=== PATIENT | female | born 1985 | race Caucasian/White ===

== ENCOUNTER 2018-05-31 17:37 | Emergency (ER) | payer SELFPAY ==
[~2018-05-31] VITALS: Ht 160 cm; Wt 63.6 kg
[~2018-05-31 17:37] MED LIST: CIPROFLOXACN500 MG PO; NO HOME MEDS; PYRIDIUM200 MG PO
[2018-05-31 18:16] LABS: HEMOGLOBIN 11.8 g/dl (12.0-16.0); IMMATURE GRANULOCYTES 0.6 % (0.0-5.0); MEAN CELL VOLUME 87.4 fL CALC (80.0-100.0); MEAN CORPUSCULAR HGB 29.1 pG CALC (26.0-32.0); MEAN CORPUSCULAR HGB CONC 33.2 g/L CALC (32.0-36.0); NEUT# 6.21 thou/uL (2.00-7.15); RED BLOOD COUNT 4.06 mill/uL (4.20-5.60); RED CELL DISTRI WIDTH 13.9 % (11.5-15.5)
[2018-05-31 18:27] LABS: HEMATOCRIT 35.5 % (37.0-47.0)
[2018-05-31 18:32] LABS: ALBUMIN 4.1 g/dL (3.2-5.0); ANION GAP 14 (6-22 (CALC)); BILIRUBIN, TOTAL 0.4 mg/dL (0.0-1.4); BUN 18 mg/dL (7-17); BUN/CREATININE RATIO 18 (12-20 (CALC)); CARBON DIOXIDE 29 mmol/l (22-30); CHLORIDE 107 mmol/l (95-108); GFR > 60 ML/MIN (>=60 (CALC)); GFR FOR AFR.AMER. > 60 ML/MIN (>=60 (CALC)); POTASSIUM 3.3 mmol/l (3.5-5.1); SODIUM 146 mmol/l (137-146); TOTAL PROTEIN 6.9 g/dL (6.3-8.2)
[2018-05-31 18:37] LABS: ALKALINE PHOSPHATASE 46 u/l (38-126); SGOT/AST 48 u/l (14-36)
[2018-05-31 18:44] LABS: URINE BILIRUBIN - DIPSTICK NEGATIVE (NEGATIVE); URINE BLOOD DIPSTICK NEGATIVE (NEGATIVE); URINE COLOR YELLOW; URINE GLUCOSE - DIPSTICK NEGATIVE (NEGATIVE); URINE KETONE TRACE mg/dL (NEGATIVE); URINE LEUK ESTERASE NEGATIVE (NEGATIVE); URINE PROTEIN - DIPSTICK 30 mg/dL (NEG-TRACE); URINE SPECIFIC GRAVITY >=1.030
[2018-05-31 18:57] LABS: URINE CLARITY TURBID; URINE NITRITE - DIPSTICK POSITIVE (Negative)
[2018-05-31 19:02] LABS: URINE BACTERIA MANY hpf; URINE SQUAMOUS EPITHELIAL CELL FEW EPI/hpf (0-FEW)
[2018-05-31 19:03] LABS: COCAINE NEGATIVE (NEGATIVE); TETRAHYDROCANNABIONOL NEGATIVE (NEGATIVE)
[2018-05-31 19:04] LABS: BARBITURATES NEGATIVE (NEGATIVE); METHADONE NEGATIVE (NEGATIVE); OXCYCODONE NEGATIVE (NEGATIVE); TRICYLIC ANTIDEPRESSANTS NEGATIVE (NEGATIVE)
[2018-05-31] MEDS ORDERED: CIPROFLOXACN500 MG PO (19:13)
[2018-05-31 20:30] VITALS: BP 178/73
== END 2018-05-31 20:26 | disposition designated cancer center or children's hospital (05) | DRG 897 ==
LOC: ED 17:37
PROVIDERS: Emergency Medicine
DX: F15.10 Other stimulant abuse, uncomplicated (principal); R45.851 Suicidal ideations; N39.0 Urinary tract infection, site not specified; B96.20 Unspecified Escherichia coli [E. coli] as the cause of diseases classified elsewhere

== ENCOUNTER 2021-09-29 10:50 | Emergency (ER) | payer SELFPAY ==
[~2021-09-29] VITALS: Ht 160 cm; Wt 77.2 kg
[2021-09-29 12:31] LABS: ALBUMIN 4.4 g/dL (3.2-5.0); ALKALINE PHOSPHATASE 73 u/l (38-126); ANION GAP 13 (6-22 (CALC)); BUN 13 mg/dL (7-17); BUN/CREATININE RATIO 20 (12-20 (CALC)); CARBON DIOXIDE 26 mmol/l (22-30); CHLORIDE 104 mmol/l (95-108); CREATININE 0.7 mg/dL (0.5-1.0); ETHYL ALCOHOL 0 mg/dl (0-30); GFR > 60 ML/MIN (>=60 (CALC)); GFR FOR AFR.AMER. > 60 ML/MIN (>=60 (CALC)); HEMOGLOBIN 13.4 g/dl (12.0-16.0); IMMATURE GRANULOCYTES 0.6 % (0.0-5.0); LIPASE 70 u/l (23-300); MEAN CELL VOLUME 89.2 fL CALC (80.0-100.0); MEAN CORPUSCULAR HGB 28.4 pG CALC (26.0-32.0); MEAN CORPUSCULAR HGB CONC 31.8 g/dL CAL (32.0-36.0); NEUT# 5.65 thou/uL (2.00-7.15); POTASSIUM 4.2 mmol/l (3.5-5.1); RED BLOOD COUNT 4.72 mill/uL (4.20-5.60); RED CELL DISTRI WIDTH 13.2 % (11.5-15.5); SGOT/AST 25 u/l (14-36); SODIUM 138 mmol/l (137-146)
[2021-09-29 12:33] LABS: BILIRUBIN, TOTAL 0.6 mg/dL (0.0-1.4); HEMATOCRIT 42.1 % (37.0-47.0); TOTAL PROTEIN 8.3 g/dL (6.3-8.2)
[2021-09-29] MEDS ORDERED: ULTRAM50 MG PO (14:06)
[2021-09-29] MEDS ORDERED: ZOFRAN4 MG/TAB PO (14:06)
[2021-09-29 14:17] VITALS: BP 136/82
== END 2021-09-29 14:29 | disposition home or self-care (01) | DRG 103 ==
LOC: ED 10:50
DX: G43.909 Migraine, unspecified, not intractable, without status migrainosus (principal); I10 Essential (primary) hypertension; T46.5X6A Underdosing of other antihypertensive drugs, initial encounter; Z91.128 Patient's intentional underdosing of medication regimen for other reason; Z20.822 Contact with and (suspected) exposure to COVID-19

== ENCOUNTER 2022-01-28 16:09 | Emergency (ER) | payer SELFPAY ==
[~2022-01-28] VITALS: Ht 160 cm; Wt 60.0 kg
[~2022-01-28 16:09] MED LIST changes: +ULTRAM50 MG PO; +ZOFRAN4 MG/TAB PO
[2022-01-28 17:34] VITALS: BP 182/96
[2022-01-28] MEDS ORDERED: PREDNISONE20 MG PO (17:59)
[2022-01-28] MEDS ORDERED: PEPCID20 MG PO (17:59)
[2022-01-28] MEDS ORDERED: BENADRYL25 M1 PO (17:59)
[2022-01-28 18:01] VITALS: BP 151/84
[2022-01-28 18:31] VITALS: BP 155/83
[2022-01-28 19:00] VITALS: BP 142/79
[2022-01-28 19:23] VITALS: BP 181/97
== END 2022-01-28 19:14 | disposition home or self-care (01) | DRG 607 ==
LOC: ED 16:09
DX: L23.9 Allergic contact dermatitis, unspecified cause (principal); I10 Essential (primary) hypertension; X58.XXXA Exposure to other specified factors, initial encounter

== ENCOUNTER 2022-09-29 13:09 | Emergency (ER) | payer SELFPAY ==
[~2022-09-29] VITALS: Ht 160 cm; Wt 63.0 kg
[~2022-09-29 13:09] MED LIST changes: +BENADRYL25 M1 PO; +PEPCID20 MG PO; +PREDNISONE20 MG PO
[2022-09-29 14:20] LABS: BASO% 0.1 % (0-3); EOS% 0.4 % (0-8); HEMATOCRIT 40.7 % (37.0-47.0); HEMOGLOBIN 13.3 g/dl (12.0-16.0); IMMATURE GRANULOCYTES 0.4 % (0.0-5.0); LYMPH% 2.7 % (15-41); MEAN CELL VOLUME 87.5 fL CALC (80.0-100.0); MEAN CORPUSCULAR HGB 28.6 pG CALC (26.0-32.0); MEAN CORPUSCULAR HGB CONC 32.7 g/dL CAL (32.0-36.0); MONO% 3.8 % (2-13); NEUT# 22.67 thou/uL (2.00-7.15); NEUT% 92.6 % (42-76); RED BLOOD COUNT 4.65 mill/uL (4.20-5.60); RED CELL DISTRI WIDTH 13.7 % (11.5-15.5)
[2022-09-29 14:25] LABS: HCG SERUM/URINE (NEG/POS) NEGATIVE (NEGATIVE)
[2022-09-29 14:29] LABS: ALBUMIN 4.3 g/dL (3.2-5.0); ALKALINE PHOSPHATASE 80 u/l (38-126); ANION GAP 10 (6-22 (CALC)); BILIRUBIN, TOTAL 0.4 mg/dL (0.02-1.3); BUN 13 mg/dL (7-17); BUN/CREATININE RATIO 19 (12-20 (CALC)); CARBON DIOXIDE 25 mmol/l (22-30); CHLORIDE 102 mmol/l (95-108); CREATININE 0.7 mg/dL (0.5-1.0); GFR FOR AFR.AMER. > 60 ML/MIN (>=60 (CALC)); GFR OTHER RACES > 60 ML/MIN (>=60 (CALC)); SGOT/AST 24 u/l (14-36); SODIUM 133 mmol/l (137-146); TOTAL PROTEIN 7.8 g/dL (6.3-8.2)
[2022-09-29 14:57] VITALS: BP 133/94
== END 2022-09-29 15:07 | disposition home or self-care (01) | DRG 103 ==
LOC: ED 13:09
PROVIDERS: Family Medicine
DX: G44.009 Cluster headache syndrome, unspecified, not intractable (principal)

== ENCOUNTER 2022-10-24 22:27 | Emergency (ER) | payer SELFPAY ==
[~2022-10-24] VITALS: Ht 160 cm; Wt 86.3 kg
[2022-10-24 22:45] VITALS: BP 158/89
[2022-10-24 23:09] VITALS: BP 149/83
[2022-10-24 23:15] VITALS: BP 152/107
[2022-10-24 23:40] VITALS: BP 158/99
[2022-10-24 23:43] LABS: BASO% 0.1 % (0-3); HEMATOCRIT 44.6 % (37.0-47.0); HEMOGLOBIN 14.5 g/dl (12.0-16.0); IMMATURE GRANULOCYTES 0.5 % (0.0-5.0); LYMPH% 2.2 % (15-41); MEAN CELL VOLUME 85.8 fL CALC (80.0-100.0); MEAN CORPUSCULAR HGB 27.9 pG CALC (26.0-32.0); MEAN CORPUSCULAR HGB CONC 32.5 g/dL CAL (32.0-36.0); MONO% 6.4 % (2-13); NEUT# 26.27 thou/uL (2.00-7.15); NEUT% 90.8 % (42-76); RED BLOOD COUNT 5.2 mill/uL (4.20-5.60); RED CELL DISTRI WIDTH 13.7 % (11.5-15.5)
[2022-10-24 23:45] VITALS: BP 160/98
[2022-10-24 23:57] LABS: POTASSIUM 4.3 mmol/l (3.5-5.1)
[2022-10-24 23:58] LABS: ALBUMIN 5.7 g/dL (3.2-5.0); BILIRUBIN, TOTAL 0.6 mg/dL (0.02-1.3); CREATININE 3.6 mg/dL (0.5-1.0); TOTAL PROTEIN 10.3 g/dL (6.3-8.2)
[2022-10-25 02:33] VITALS: BP 164/92
== END 2022-10-25 02:35 | disposition left against medical advice (07) | DRG 894 ==
LOC: ED 22:27
PROVIDERS: Emergency Medicine
DX: F15.10 Other stimulant abuse, uncomplicated (principal); A41.9 Sepsis, unspecified organism; E86.0 Dehydration; V19.9XXA Pedal cyclist (driver) (passenger) injured in unspecified traffic accident, initial encounter; R22.9 Localized swelling, mass and lump, unspecified; Z53.29 Procedure and treatment not carried out because of patient's decision for other reasons

== ENCOUNTER 2023-04-24 13:11 | Emergency (ER) | payer SELFPAY ==
[~2023-04-24] VITALS: Ht 160 cm; Wt 73.9 kg
[2023-04-24 13:34] VITALS: BP 165/94
[2023-04-24 13:52] LABS: BASO% 0.2 % (0-3); EOS% 1.2 % (0-8); HEMATOCRIT 41.7 % (37.0-47.0); HEMOGLOBIN 13.9 g/dl (12.0-16.0); IMMATURE GRANULOCYTES 0.4 % (0.0-5.0); LYMPH% 25.2 % (15-41); MEAN CORPUSCULAR HGB 28.7 pG CALC (26.0-32.0); MEAN CORPUSCULAR HGB CONC 33.3 g/dL CAL (32.0-36.0); NEUT# 5.41 thou/uL (2.00-7.15); RED BLOOD COUNT 4.85 mill/uL (4.20-5.60); RED CELL DISTRI WIDTH 13.4 % (11.5-15.5)
[2023-04-24 14:00] VITALS: BP 173/91
[2023-04-24 14:05] LABS: HCG SERUM/URINE (NEG/POS) NEGATIVE (NEGATIVE)
[2023-04-24 14:08] LABS: ALKALINE PHOSPHATASE 63 u/l (38-126); ANION GAP 15 (6-22 (CALC)); BILIRUBIN, TOTAL 0.7 mg/dL (0.02-1.3); CARBON DIOXIDE 22 mmol/l (22-30); CHLORIDE 104 mmol/l (95-108); POTASSIUM 3.7 mmol/l (3.5-5.1); SODIUM 137 mmol/l (137-146)
[2023-04-24 14:09] LABS: ALBUMIN 4.3 g/dL (3.2-5.0); BUN 15 mg/dL (7-17); BUN/CREATININE RATIO 19 (12-20 (CALC)); CREATININE 0.8 mg/dL (0.5-1.0); GFR FOR AFR.AMER. > 60 ML/MIN (>=60 (CALC)); GFR OTHER RACES > 60 ML/MIN (>=60 (CALC)); SGOT/AST 28 u/l (14-36); TOTAL PROTEIN 7.9 g/dL (6.3-8.2)
[2023-04-24 14:30] VITALS: BP 159/91
[2023-04-24] MEDS ORDERED: REGLAN10 MG PO (16:08)
[2023-04-24] MEDS ORDERED: TORADOL PO (16:08)
[2023-04-24] MEDS ORDERED: FIORICET PO (16:08)
[2023-04-24 16:27] VITALS: BP 138/76
[2023-04-24 16:36] VITALS: BP 138/76
== END 2023-04-24 16:37 | disposition home or self-care (01) | DRG 103 ==
LOC: ED 13:11
PROVIDERS: Nurse Practitioner
DX: G43.909 Migraine, unspecified, not intractable, without status migrainosus (principal); I10 Essential (primary) hypertension; Z20.822 Contact with and (suspected) exposure to COVID-19